=== PATIENT | male | born 1980 | race Native Hawaiian/Other Pacific Islander ===

== ENCOUNTER 2021-05-23 09:07 | Inpatient (IN) | payer SELFPAY ==
[~2021-05-23] VITALS: Ht 190.5 cm; Wt 87.1 kg
[2021-05-23] MEDS ORDERED: KETOROLAC 30 MG/ML VIAL IVP STA (09:13)
[2021-05-23] MEDS ORDERED: LACTATED RINGERS 1,000 ML IV STA (09:13)
--- NOTE | 2021-05-23 09:13 | ED Abdominal Pain ---
General Stated Complaint: ABD PAIN; N/V/D Source of Information: Patient, EMS Exam Limitations: No Limitations History of Present Illness Date Seen by Provider: May 23, 2021 Time Seen by Provider: 09:08 Initial Comments 41-year-old man with no significant past medical history coming in due to periumbilical abdominal pain via EMS. Pain started yesterday afternoon, has been intermittent, sharp, worsening. Nothing seems to make it better or worse. Has not taken any medications with it. Has associated nonbloody and nonbilious vomiting with the last episode about 4 hours ago. Also has associated nonbloody diarrhea. Denies any fever, chest pain, shortness of breath, cough, weakness, numbness, rash, dysuria, hematuria, or any other concerns. Has not been around anyone sick that he knows of. Has never had COVID and is not vaccinated for it. Of note, he says this feels similar to 5 years ago when he had appendicitis, although he no longer has an appendix. Last ate yesterday, has no appetite. Allergies and Home Medications Allergies Coded Allergies: No Known Drug Allergies (Unverified , 05/23/21) Patient Home Medication List Home Medication List Reviewed: Yes Review of Systems Review of Systems Constitutional: No chills, No fever EENTM: No Blurred Vision Respiratory: Denies Cough, Denies Shortness of Air Cardiovascular: Denies Chest Pain Gastrointestinal: Abdominal Pain, Diarrhea, Nausea, Vomiting Genitourinary: Denies Burning, Denies Frequency Musculoskeletal: No back pain Skin: No rash Psychiatric/Neurological: No Symptoms Reported Endocrine: No Symptoms Reported Hematologic/Lymphatic: No Symptoms Reported All Other Systems Reviewed Negative Unless Noted: Yes Past Zxlivtv-Ujfwqa-Pyeyev Hx Patient Social History Tobacco Use?: Yes Substance use?: No Alcohol Use?: No Past Medical History Surgeries: Yes Appendectomy Physical Exam Vital Signs Vital Signs - First Documented 05/23/21 09:15 Temp 36.4 Pulse 72 Resp 16 B/P (MAP) 131/91 (104) Pulse Ox 99 O2 Delivery Room Air Capillary Refill : Height/Weight/BMI Height: '" Weight: lbs. oz. kg; BMI Method: General Appearance: WD/WN, no apparent distress HEENT: PERRL/EOMI, normal ENT inspection, pharynx normal Neck: non-tender, full range of motion, supple, normal inspection Respiratory: chest non-tender, lungs clear, normal breath sounds, no respiratory distress, no accessory muscle use Cardiovascular: regular rate, rhythm, no edema, no murmur Gastrointestinal: normal bowel sounds, soft, guarding (voluntary); No rebound; tenderness Extremities: normal range of motion, non-tender, normal inspection, no pedal edema, no calf tenderness, normal capillary refill Back: normal inspection, no CVA tenderness, no vertebral tenderness Neurologic/Psychiatric: no motor/sensory deficits, alert, normal mood/affect Skin: normal color, warm/dry Lymphatic: no adenopathy Progress/Results/Core Measures Results/Orders Lab Results Laboratory Tests Test 05/23/21 09:18 Range/Units White Blood Count 14.0 H 4.3-11.0 10^3/uL Red Blood Count 5.88 H 4.30-5.52 10^6/uL Hemoglobin 15.9 13.3-17.7 g/dL Hematocrit 49 40-54 % Mean Corpuscular Volume 83 80-99 fL Mean Corpuscular Hemoglobin 27 25-34 pg Mean Corpuscular Hemoglobin Concent 32 32-36 g/dL Red Cell Distribution Width 13.7 10.0-14.5 % Platelet Count 384 130-400 10^3/uL Mean Platelet Volume 10.2 9.0-12.2 fL Immature Granulocyte % (Auto) 0 % Neutrophils (%) (Auto) 75 42-75 % Lymphocytes (%) (Auto) 19 12-44 % Monocytes (%) (Auto) 5 0-12 % Eosinophils (%) (Auto) 1 0-10 % Basophils (%) (Auto) 0 0-10 % Neutrophils # (Auto) 10.5 H 1.8-7.8 X 10^3 Lymphocytes # (Auto) 2.6 1.0-4.0 X 10^3 Monocytes # (Auto) 0.7 0.0-1.0 X 10^3 Eosinophils # (Auto) 0.1 0.0-0.3 10^3/uL Basophils # (Auto) 0.0 0.0-0.1 10^3/uL Immature Granulocyte # (Auto) 0.0 0.0-0.1 10^3/uL Sodium Level 138 135-145 MMOL/L Potassium Level 3.9 3.6-5.0 MMOL/L Chloride Level 104 98-107 MMOL/L Carbon Dioxide Level 23 21-32 MMOL/L Anion Gap 11 5-14 MMOL/L Blood Urea Nitrogen 10 7-18 MG/DL Creatinine 1.06 0.60-1.30 MG/DL Estimat Glomerular Filtration Rate 76 BUN/Creatinine Ratio 9 Glucose Level 141 H 70-105 MG/DL Calcium Level 9.9 8.5-10.1 MG/DL Corrected Calcium 9.5 8.5-10.1 MG/DL Total Bilirubin 0.3 0.1-1.0 MG/DL Aspartate Amino Transf (AST/SGOT) 12 5-34 U/L Alanine Aminotransferase (ALT/SGPT) 14 0-55 U/L Alkaline Phosphatase 102 40-136 U/L Total Protein 8.5 H 6.4-8.2 GM/DL Albumin 4.5 3.2-4.5 GM/DL Lipase 14 8-78 U/L Influenza Type A Antigen NEGATIVE NEGATIVE Influenza Type B Antigen NEGATIVE NEGATIVE My Orders Orders - LUPILLO PALOMO MD Comprehensive Metabolic Panel (05/23/21 09:13) Lipase (05/23/21 09:13) Ua Culture If Indicated (05/23/21 09:13) Ed Iv/Invasive Line Start (05/23/21 09:13) Cbc With Automated Diff (05/23/21 09:13) Ct Abdomen/Pelvis W (05/23/21 09:13) Covid 19 Inhouse Test (05/23/21 09:13) Influenza A & B Antigens (05/23/21 09:13) Ondansetron Injection (Zofran Injectio (05/23/21 09:15) Lactated Ringers (Lr 1000 Ml Iv Solution (05/23/21 09:13) Ketorolac Injection (Toradol Injection) (05/23/21 09:13) Iohexol Injection (Omnipaque 350 Mg/Ml 1 (05/23/21 09:30) Received Contrast (Hold Metformin- Contr (05/23/21 09:30) Sodium Chloride Flush (Catheter Flush Sy (05/23/21 09:30) Ns (Ivpb) (Sodium Chloride 0.9% Ivpb Bag (05/23/21 09:30) Ng Tube Insert & Assessment (05/23/21 10:15) Morphine Injection (Morphine Injection (05/23/21 10:15) Lorazepam Injection (Ativan Injection) (05/23/21 10:30) Lorazepam Injection (Ativan Injection) (05/23/21 10:29) Medications Given in ED Current Medications Medications Dose Ordered Sig/Ytler Route Start Time Stop Time Status Last Admin Dose Admin Iohexol 100 ml ONCE ONCE IV 05/23/21 09:30 05/23/21 09:31 DC 05/23/21 09:35 100 ML Lorazepam 1 mg ONCE ONCE IVP 05/23/21 10:30 05/23/21 10:31 DC 05/23/21 10:34 1 MG Ondansetron HCl 4 mg ONCE ONCE IVP 05/23/21 09:15 05/23/21 09:17 DC 05/23/21 09:25 4 MG Sodium Chloride 10 ml NEEDED PRN IV 05/23/21 09:30 05/23/21 09:35 10 ML Sodium Chloride 100 ml ONCE ONCE IV 05/23/21 09:30 05/23/21 09:31 DC 05/23/21 09:35 100 ML Vital Signs/I&O 05/23/21 05/23/21 09:15 11:30 Temp 36.4 Pulse 72 67 Resp 16 16 B/P (MAP) 131/91 (104) 131/78 Pulse Ox 99 97 O2 Delivery Room Air Room Air Progress Progress Note : Progress Note 41-year-old male with above history coming in due to abdominal pain. ABCs were intact and vitals were stable on presentation. Physical exam with mostly periumbilical tenderness with some voluntary guarding. An IV was placed and basic labs were obtained, he was given a bolus of IV fluids as well as Zofran for nausea and Toradol for pain control. Basic labs significant for slightly elevated white blood cell count, normal creatinine, normal liver function test. CT concerning for small bowel obst ruction. I contacted the surgeon on-call, Dr. Lee, and the patient will get an NG tube to suction. I contacted Dr. Ray, and the patient will be admitted to the Medr floor under inpatient status for further evaluation and management. Of note, we did have an incidental finding of a left adrenal mass. I discussed this with the patient, and discussed that this could be benign or cancerous. I discussed that he needs to have an MRI to further characterize this. He does not have insurance or primary care doctor. I recommended [facility] here in town and the patient is agreeable to this. Diagnostic Imaging Diagonstic Imaging: CT Plain Films/CT/US/NM/MRI: abdomen Comments NAME: KAIT HSIEH [facility] REC#: [id number] PT STATUS: REG ER : 1980 PHYSICIAN: LUPILLO PALOMO MD ADMIT DATE: 05/23/21/ER FS Draft Date of Exam:05/23/21 CT ABDOMEN/PELVIS W PROCEDURE: CT abdomen and pelvis with contrast. TECHNIQUE: Multiple contiguous axial images were obtained through the abdomen and pelvis after administration of intravenous contrast. Auto Exposure Controls were utilized during the CT exam to meet ALARA standards for radiation dose reduction. All CT scans use one or more of the following dose optimizing techniques: automated exposure control, MA and/or KvP adjustment based on patient size and exam type or iterative reconstruction. INDICATION: Periumbilical abdominal pain. History of loose stools. COMPARISON: I have no priors. FINDINGS: The stomach is distended with air and ingested material. The majority of the small bowel loops are dilated and showed air-fluid levels. Small bowel caliber up to 4.2 cm with the most dilated small bowel distally showing at least some fecalization and luminal debris. At and below the level of the umbilicus, there is some central abdominal pelvic decompressed small bowel loops transitioned at the level of the umbilicus. No umbilical hernia aside for tiny fatty hernia. No acute appearing abdominal wall defect. Early or partial small bowel obstruction is presumed however no cause can be identified. There is a small volume pelvic free fluid without loculation or abscess. The appendix is surgically absent. The terminal ileum decompressed and appeared unremarkable. There is some liquid stool within the proximal colon. The distal colon and transverse colon are decompressed. No fecal loading at the rectal vault, no impaction. Liver, gallbladder and bile ducts normal. The spleen and pancreas normal. The unobstructed kidneys normal. The urinary bladder unremarkable. There is no abdominal pelvic mesenteric or retroperitoneal lymphadenopathy. There are left adrenal masses, the larger more cephalad appears to be off the tip of the lateral limb of the left adrenal and measured 3.7 x 3.1 cm and appears heterogeneous in its density and enhancement without macroscopic fat. The smaller is off the medial limb of the left adrenal and appears homogenously hyperdense measuring 1.6 x 1.3 cm. The right adrenal appeared normal. IMPRESSION: Mid to distal small bowel obstruction, transition at the midline at or just below the level of the umbilicus, etiology not defined. Small volume pelvic free fluid without abscess or loculated collection. Gastric distention without evidence for outlet obstruction. No viscus perforation. Left adrenal masses, the larger 3.8 x 3.1 cm heterogeneous in its density and enhancement, without appreciable fatty composition. Further workup with adrenal protocol MRI recommended. As this patient has had previous appendectomy, it is likely that outside exams exist. Attempt to obtain those studies encouraged to see if long-term stability of these indeterminant masses could be ascertained. Otherwise, neoplastic primary versus metastatic as well as a process such as pleochromocytoma could not be excluded by imaging criteria and further workup would be needed including adrenal protocol MRI as well as a relevant clinical correlation. No other significant abnormality. Dictated on workstation # [id number] Dict: 05/23/21 0945 Trans: 05/23/21 1004 [facility] [id number] Interpreted by: FREDO MORTENSEN Electronically signed by: Departure Impression Primary Impression: SBO (small bowel obstruction) Additional Impression: Adrenal mass, left Disposition: 30 STILL A PATIENT Condition: Stable Admissions Decision to Admit Reason: Admit from ER (General) Decision to Admit/Date: May 23, 2021 Time/Decision to Admit Time: 10:10 Transfer Method of Transfer: EMS LUPILLO PALOMO MD May 23, 2021 09:13
[2021-05-23] MEDS ORDERED: ONDANSETRON 4 MG/2 ML (SDV) Z0FRAN IVP ONE (09:15)
[2021-05-23 09:30] LABS: BASOPHILS % (AUTO) 0 % (0-10); EOSINOPHILS % (AUTO) 1 % (0-10); HEMATOCRIT 49 % (40-54); HEMOGLOBIN 15.9 g/dL (13.3-17.7); LYMPHOCYTES % (AUTO) 19 % (12-44); MEAN CORPUSCULAR HEMOGLOBIN 27 pg (25-34); MEAN CORPUSCULAR HGB CONC 32 g/dL (32-36); MEAN CORPUSCULAR VOLUME 83 fL (80-99); MEAN PLATELET VOLUME 10.2 fL (9.0-12.2); MONOCYTES % (AUTO) 5 % (0-12); NEUTROPHILS % (AUTO) 75 % (42-75); PLATELET COUNT 384 10^3/uL (130-400)
[2021-05-23] MEDS ORDERED: IOHEXOL 350 MG/ML 100 ML (OMNIPAQUE 350) VIAL IV ONE (09:30)
[2021-05-23] MEDS ORDERED: HOLD METFORMIN - RECEIVED CONTRAST 20 ML VIAL IV SCH (09:30)
[2021-05-23] MEDS ORDERED: NS 100 ML (IVPB) BAG IV ONE (09:30)
[2021-05-23] MEDS ORDERED: CATHETER FLUSH 10 ML SYR IV PRN (09:30)
[2021-05-23 09:31] LABS: EOSINOPHILS # (AUTO) 0.1 10^3/uL (0.0-0.3); LYMPHOCYTES # (AUTO) 2.6 X 10^3 (1.0-4.0); MONOCYTES # (AUTO) 0.7 X 10^3 (0.0-1.0); NEUTROPHILS # (AUTO) 10.5 X 10^3 (1.8-7.8)
[2021-05-23 09:59] LABS: CREATININE SERUM 1.06 MG/DL (0.60-1.30); POTASSIUM 3.9 MMOL/L (3.6-5.0)
[2021-05-23 10:00] LABS: ALBUMIN 4.5 GM/DL (3.2-4.5); BILIRUBIN,TOTAL 0.3 MG/DL (0.1-1.0); CALCIUM 9.9 MG/DL (8.5-10.1); TOTAL PROTEIN 8.5 GM/DL (6.4-8.2)
--- NOTE | 2021-05-23 10:04 | Diagnostic Imaging Report ---
PROCEDURE: CT abdomen and pelvis with contrast. TECHNIQUE: Multiple contiguous axial images were obtained through the abdomen and pelvis after administration of intravenous contrast. Auto Exposure Controls were utilized during the CT exam to meet ALARA standards for radiation dose reduction. All CT scans use one or more of the following dose optimizing techniques: automated exposure control, MA and/or KvP adjustment based on patient size and exam type or iterative reconstruction. INDICATION: Periumbilical abdominal pain. History of loose stools. COMPARISON: I have no priors. FINDINGS: The stomach is distended with air and ingested material. The majority of the small bowel loops are dilated and showed air-fluid levels. Small bowel caliber up to 4.2 cm with the most dilated small bowel distally showing at least some fecalization and luminal debris. At and below the level of the umbilicus, there is some central abdominal pelvic decompressed small bowel loops transitioned at the level of the umbilicus. No umbilical hernia aside for tiny fatty hernia. No acute appearing abdominal wall defect. Early or partial small bowel obstruction is presumed however no cause can be identified. There is a small volume pelvic free fluid without loculation or abscess. The appendix is surgically absent. The terminal ileum decompressed and appeared unremarkable. There is some liquid stool within the proximal colon. The distal colon and transverse colon are decompressed. No fecal loading at the rectal vault, no impaction. Liver, gallbladder and bile ducts normal. The spleen and pancreas normal. The unobstructed kidneys normal. The urinary bladder unremarkable. There is no abdominal pelvic mesenteric or retroperitoneal lymphadenopathy. There are left adrenal masses, the larger more cephalad appears to be off the tip of the lateral limb of the left adrenal and measured 3.7 x 3.1 cm and appears heterogeneous in its density and enhancement without macroscopic fat. The smaller is off the medial limb of the left adrenal and appears homogenously hyperdense measuring 1.6 x 1.3 cm. The right adrenal appeared normal. IMPRESSION: Mid to distal small bowel obstruction, transition at the midline at or just below the level of the umbilicus, etiology not defined. Small volume pelvic free fluid without abscess or loculated collection. Gastric distention without evidence for outlet obstruction. No viscus perforation. Left adrenal masses, the larger 3.8 x 3.1 cm heterogeneous in its density and enhancement, without appreciable fatty composition. Further workup with adrenal protocol MRI recommended. As this patient has had previous appendectomy, it is likely that outside exams exist. Attempt to obtain those studies encouraged to see if long-term stability of these indeterminant masses could be ascertained. Otherwise, neoplastic primary versus metastatic as well as a process such as pleochromocytoma could not be excluded by imaging criteria and further workup would be needed including adrenal protocol MRI as well as a relevant clinical correlation. No other significant abnormality. Dictated by: Dictated on workstation # [id number]
[2021-05-23] MEDS ORDERED: morphine INJ 10 MG/ML 1ML (SYR OR VIAL) IVP STA (10:15)
[2021-05-23] MEDS ORDERED: LORazepam INJ 2 MG/ML (ATIVAN) VIAL ONE (10:29)
[2021-05-23] MEDS ORDERED: LORazepam INJ 2 MG/ML (ATIVAN) VIAL IVP ONE (10:30)
[2021-05-23] MEDS ORDERED: ONDANSETRON 4 MG/2 ML (SDV) Z0FRAN IV PRN (12:45)
[2021-05-23] MEDS ORDERED: morphine INJ 4 MG/ML 1 ML (VIAL/SYRINGE) IVP PRN (12:45)
--- NOTE | 2021-05-23 12:46 | Consultation - Surgery ---
History of Present Illness History of Present Illness Patient Consulted On(katie/time) 05/23/21 12:41 Time Seen by Provider: 12:30 History of Present Illness Surgery asked to consult regarding partial small bowel obstruction. HPI per ED: 41-year-old man with no significant past medical history coming in due to periumbilical abdominal pain via EMS. Pain started yesterday afternoon, has been intermittent, sharp, worsening. Nothing seems to make it better or worse. Has not taken any medications with it. Has associated nonbloody and nonbilious vomiting with the last episode about 4 hours ago. Also has associated nonbloody diarrhea. Denies any fever, chest pain, shortness of breath, cough, weakness, numbness, rash, dysuria, hematuria, or any other concerns. Has not been around anyone sick that he knows of. Has never had COVID and is not vaccinated for it. Of note, he says this feels similar to 5 years ago when he had appendicitis, although he no longer has an appendix. Last ate yesterday, has no appetite. When I spoke to pt he states the pain started last night and was associated with vomiting. Rated pain last night as 8 out of 10, now it is 3-4. Still mildly nauseous. He denied any previous episode of bowel obstruction. Allergies and Home Medications Allergies Coded Allergies: No Known Drug Allergies (Unverified , 05/23/21) Patient Home Medication List Home Medication List Reviewed: Yes Past Ugecltx-Opotad-Dfuepr Hx Patient Social History Smoking Status: Current Everyday Smoker Alcohol Use?: No Have you traveled recently?: No Surgeries History of Surgeries: Yes Surgeries: Appendectomy Respiratory History of Respiratory Disorde: No Cardiovascular History of Cardiac Disorders: No Neurological History of Neurological Disord: No Genitourinary History of Genitourinary Disor: No Gastrointestinal History of Gastrointestinal Di: No Musculoskeletal History of Musculoskeletal Dis: No Endocrine History of Endocrine Disorders: No HEENT History of HEENT Disorders: No Loss of Vision: Denies Hearing Impairment: Denies Cancer History of Cancer: No Psychosocial History of Psychiatric Problem: No Family Medical History Significant Family History: Cancer (Father of pancreatic Cancer), Diabetes (Mother) Review of Systems-General Constitutional: No chills, No diaphoresis EENTM: No blurred vision, No mouth swelling, No epistaxis, No throat swelling Respiratory: No cough, No dyspnea on exertion Cardiovascular: No chest pain, No edema, No palpitations Gastrointestinal: abdominal pain; No jaundice; loss of appetite, nausea, vomiting Genitourinary: No dysuria, No frequency, No hematuria Musculoskeletal: No joint pain, No joint swelling, No muscle stiffness Skin: No change in color, No change in hair/nails Psychiatric/Neurological: Denies Anxiety, Denies Seizure, Denies Tremors Physical Exam-General Problems Physical Exam Vital Signs Vital Signs - First Documented 05/23/21 09:15 Temp 36.4 Pulse 72 Resp 16 B/P (MAP) 131/91 (104) Pulse Ox 99 O2 Delivery Room Air Capillary Refill : Less Than 3 Seconds General Appearance: WD/WN, no apparent distress Eyes: Bilateral Eye PERRL, Bilateral Eye EOMI HEENT: pharynx normal; No scleral icterus (R), No scleral icterus (L) Neck: non-tender, supple Respiratory: chest non-tender, lungs clear, normal breath sounds, no respiratory distress, no accessory muscle use Cardiovascular: regular rate, rhythm, no murmur Gastrointestinal: soft, distended, tenderness (diffusely), hernia (umbilical), other (scar midline from appendectomy) Rectal: deferred Back: no CVA tenderness, no vertebral tenderness Extremities: non-tender, normal inspection, no pedal edema, no calf tenderness 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, no motor/sensory deficits, alert, normal mood/affect, oriented x 3 Skin: normal color, warm/dry, tattoos/piercings Lymphatic: no adenopathy (neck, axilla or groin) Data Review Labs Laboratory Tests 05/23/21 09:18: White Blood Count 14.0H, Red Blood Count 5.88H, Hemoglobin 15.9, Hematocrit 49, Mean Corpuscular Volume 83, Mean Corpuscular Hemoglobin 27, Mean Corpuscular Hemoglobin Concent 32, Red Cell Distribution Width 13.7, Platelet Count 384, Mean Platelet Volume 10.2, Immature Granulocyte % (Auto) 0, Neutrophils (%) (A uto) 75, Lymphocytes (%) (Auto) 19, Monocytes (%) (Auto) 5, Eosinophils (%) (Auto) 1, Basophils (%) (Auto) 0, Neutrophils # (Auto) 10.5H, Lymphocytes # (Auto) 2.6, Monocytes # (Auto) 0.7, Eosinophils # (Auto) 0.1, Basophils # (Auto) 0.0, Immature Granulocyte # (Auto) 0.0, Sodium Level 138, Potassium Level 3.9, Chloride Level 104, Carbon Dioxide Level 23, Anion Gap 11, Blood Urea Nitrogen 10, Creatinine 1.06, Estimat Glomerular Filtration Rate 76, BUN/Creatinine Ratio 9, Glucose Level 141H, Calcium Level 9.9, Corrected Calcium 9.5, Total Bilirubin 0.3, Aspartate Amino Transf (AST/SGOT) 12, Alanine Aminotransferase (ALT/SGPT) 14, Alkaline Phosphatase 102, Total Protein 8.5H, Albumin 4.5, Lipase 14, Influenza Type A Antigen NEGATIVE, Influenza Type B Antigen NEGATIVE Radiology Date of Exam:05/23/21 CT ABDOMEN/PELVIS W PROCEDURE: CT abdomen and pelvis with contrast. TECHNIQUE: Multiple contiguous axial images were obtained through the abdomen and pelvis after administration of intravenous contrast. Auto Exposure Controls were utilized during the CT exam to meet ALARA standards for radiation dose reduction. All CT scans use one or more of the following dose optimizing techniques: automated exposure control, MA and/or KvP adjustment based on patient size and exam type or iterative reconstruction. INDICATION: Periumbilical abdominal pain. History of loose stools. COMPARISON: I have no priors. FINDINGS: The stomach is distended with air and ingested material. The majority of the small bowel loops are dilated and showed air-fluid levels. Small bowel caliber up to 4.2 cm with the most dilated small bowel distally showing at least some fecalization and luminal debris. At and below the level of the umbilicus, there is some central abdominal pelvic decompressed small bowel loops transitioned at the level of the umbilicus. No umbilical hernia aside for tiny fatty hernia. No acute appearing abdominal wall defect. Early or partial small bowel obstruction is presumed however no cause can be identified. There is a small volume pelvic free fluid without loculation or abscess. The appendix is surgically absent. The terminal ileum decompressed and appeared unremarkable. There is some liquid stool within the proximal colon. The distal colon and transverse colon are decompressed. No fecal loading at the rectal vault, no impaction. Liver, gallbladder and bile ducts normal. The spleen and pancreas normal. The unobstructed kidneys normal. The urinary bladder unremarkable. There is no abdominal pelvic mesenteric or retroperitoneal lymphadenopathy. There are left adrenal masses, the larger more cephalad appears to be off the tip of the lateral limb of the left adrenal and measured 3.7 x 3.1 cm and appears heterogeneous in its density and enhancement without macroscopic fat. The smaller is off the medial limb of the left adrenal and appears homogenously hyperdense measuring 1.6 x 1.3 cm. The right adrenal appeared normal. IMPRESSION: Mid to distal small bowel obstruction, transition at the midline at or just below the level of the umbilicus, etiology not defined. Small volume pelvic free fluid without abscess or loculated collection. Gastric distention without evidence for outlet obstruction. No viscus perforation. Left adrenal masses, the larger 3.8 x 3.1 cm heterogeneous in its density and enhancement, without appreciable fatty composition. Further workup with adrenal protocol MRI recommended. As this patient has had previous appendectomy, it is likely that outside exams exist. Attempt to obtain those studies encouraged to see if long-term stability of these indeterminant masses could be ascertained. Otherwise, neoplastic primary versus metastatic as well as a process such as pleochromocytoma could not be excluded by imaging criteria and further workup would be needed including adrenal protocol MRI as well as a relevant clinical correlation. No other significant abnormality. Dictated by: Dictated on workstation # [id number] Dict: 05/23/21 0945 Trans: 05/23/[address] [facility] [place] [phone] Interpreted by: FREDO MORTENSEN Electronically signed by: FREDO MORTENSEN 05/23/21 1122 Assessment/Plan Assessment/Plan Assessment/Plan PSBO Left Adrenal Masses I reviewed the CT myself and discussed pt's care with physician. He had NGT placed in ER, he should remain NPO, IV fluids, anti-emetics and pain meds as needed. Will order a SBFT for tomorrow. I went over normal course of bowel obstruction; most likely it could be a previous adhesion or an enteritis. Hopefully he will not need surgery; however, if he doesn't progress or SBFT shows contrast not moving past questionable point of obstruction he will need to go to OR. He understood and I encouraged him to walk around which should help with bowel function and motility. All questions answered to his satisfaction. I will also try to see if he had CT done 5 yrs ago to get images for comparison and most likely will need work-up, can be done as outpt. He denies any problems with blood pressure or flushing. CLAY ROMO DO May 23, 2021 12:46
[2021-05-23] MEDS: LACTATED RINGERS 1,000 ML IV SCH ×2 (12:57→19:25)
[2021-05-23] MEDS: ENOXAPARIN 40 MG/0.4 ML (LOVENOX) SYR SC SCH (12:57)
[2021-05-23 13:20] VITALS: BP 135/85
[2021-05-23 15:49] VITALS: BP 137/82
[2021-05-23 19:06] VITALS: BP 130/69
[2021-05-23] MEDS: KETOROLAC 15 MG/ML VIAL IVP PRN (19:25)
[2021-05-24] VITALS: BP 126/81
[2021-05-24] MEDS: LACTATED RINGERS 1,000 ML IV SCH ×4 (02:17→22:44)
[2021-05-24 04:49] VITALS: BP 137/81
[2021-05-24] MEDS: KETOROLAC 15 MG/ML VIAL IVP PRN (08:08)
[2021-05-24 09:18] VITALS: BP 121/75
[2021-05-24 09:30] LABS: HEMATOCRIT 42 % (40-54); HEMOGLOBIN 13.8 g/dL (13.3-17.7); MEAN CORPUSCULAR HEMOGLOBIN 27 pg (25-34); MEAN CORPUSCULAR HGB CONC 33 g/dL (32-36); MEAN CORPUSCULAR VOLUME 84 fL (80-99); MEAN PLATELET VOLUME 10.3 fL (9.0-12.2); PLATELET COUNT 308 10^3/uL (130-400)
[2021-05-24 09:51] LABS: CALCIUM 9.1 MG/DL (8.5-10.1); CREATININE SERUM 0.94 MG/DL (0.60-1.30)
[2021-05-24] MEDS ORDERED: DIATRIZOATE MEGLUM/SODIUM 37% 120 ML (GASTROGRAFIN) NG ONE (13:00)
--- NOTE | 2021-05-24 13:05 | Diagnostic Imaging Report ---
INDICATION: COVID positive, hospitalized, concern for small bowel obstruction.. TECHNIQUE: Contrast administered with serial imaging obtained of the abdomen until contrast was noted in the colon.. CORRELATION STUDY: CT 05/23/2021 FINDINGS: Gastric tube is present, tip in the body of the stomach. After administration of contrast, there is normal filling of the nondistended stomach with migration of contrast into the duodenum and into the small bowel. There are mildly distended loops of small bowel present. There is gas within the colon including to the level of the rectum. There is progressive migration of contrast through the dilated small bowel. A definitive transition point of obstruction to suggest high degree obstruction is not demonstrated. On the one-hour 45 minute image, there is contrast noted within the proximal colon. IMPRESSION: 1. Dilated, distended small bowel. However, contrast migrates through the dilated small bowel without significant delay or findings to suggest high degree small bowel obstruction. Serial follow-up imaging may be of additional diagnostic utility. Dictated by: Dictated on workstation # [id number]
--- NOTE | 2021-05-24 13:18 | Progress Note - Surgery ---
Subjective Time Seen by a Provider: 10:55 Subjective/Events-last exam Pt seen and examined, he is currently getting SBFT. Still has some mild abdominal pain. Not much coming out of NGT. Review of Systems General: Fatigue Pulmonary: No Dyspnea, No Cough Cardiovascular: No: Chest Pain, Palpitations Gastrointestinal: Abdominal Pain; No: Nausea, Vomiting Objective Exam Vital Signs Date Time Temp Pulse Resp B/P (MAP) Pulse Ox O2 Delivery O2 Flow Rate FiO2 05/24/21 09:18 36.9 56 16 121/75 (90) 97 Room Air 05/24/21 08:00 100 Room Air 05/24/21 04:49 36.2 63 18 137/81 (99) 100 Room Air 05/24/21 00:00 36.5 67 18 126/81 (96) 100 Room Air 05/23/21 20:15 Room Air 05/23/21 19:06 36.3 69 18 130/69 (89) 96 Room Air 05/23/21 16:14 Room Air 05/23/21 16:10 99 Room Air 05/23/21 15:49 36.1 76 18 137/82 (100) 98 Room Air 05/23/21 13:20 36.5 65 18 135/85 (102) 97 Room Air I & O0 05/24/21 07:00 Intake Total 1000 ml Output Total 50 ml Balance 950 ml Capillary Refill : Less Than 3 Seconds General Appearance: No Apparent Distress, WD/WN Respiratory: Lungs Clear, Normal Breath Sounds, No Accessory Muscle Use, No Respiratory Distress Cardiovascular: Regular Rate, Rhythm, No Murmur Gastrointestinal: soft, distended, tenderness (diffusely but minimal), hernia (umbilical), other (scar midline from appendectomy) Results Lab Laboratory Tests 05/24/21 09:20: White Blood Count 9.0, Red Blood Count 5.03, Hemoglobin 13.8, Hematocrit 42, Mean Corpuscular Volume 84, Mean Corpuscular Hemoglobin 27, Mean Corpuscular Hemoglobin Concent 33, Red Cell Distribution Width 13.6, Platelet Count 308, Mean Platelet Volume 10.3, Sodium Level 140, Potassium Level 4.0, Chloride Level 105, Carbon Dioxide Level 26, Anion Gap 9, Blood Urea Nitrogen 9, Creatinine 0.9 4, Estimat Glomerular Filtration Rate 88, BUN/Creatinine Ratio 10, Glucose Level 90, Calcium Level 9.1 Assessment/Plan Assessment/Plan Assessment/Plan PSBO Left Adrenal Masses Covid positive SBFT appears to show contrast in proximal colon and goes through small bowel without problems. Will clamp NGT and start clears, see how pt does. Continue pain meds as needed, encourage IS and ambulation. Treat respiratory symptoms if they develop. CLAY ROMO DO May 24, 2021 13:18
[2021-05-24] MEDS: ENOXAPARIN 40 MG/0.4 ML (LOVENOX) SYR SC SCH (13:26)
--- NOTE | 2021-05-24 14:03 | History & Physical-Hospitalist ---
History of Present Illness HPI/Chief Complaint Maximo Copeland is a 41 year old male with PSH appendectomy who presented with abdominal pain. He has also had nausea and vomiting. He reports cough. He denies fevers and chills. He denies shortness of breath. He is not having bowel movements. He is now passing gas. His abdominal pain is improved with NG tube placement. Source: patient Date Seen 05/24/21 Time Seen by a Provider: 10:00 Attending Physician Kristin Macario MD PCP No,Local Physician Referring Physician Date of Admission May 23, 2021 at 12:10 Home Medications & Allergies Home Medications Reviewed patient Home Medication Reconciliation performed by pharmacy medication reconciliations autocad technician and/or nursing. Patients Allergies have been reviewed. Allergies Allergies Coded Allergies No Known Drug Allergies ([id number]/31/21) Past Qsidflk-[id number]-Yhymep Hx Patient Social History Tobacco Use?: Yes Tobacco type used: Cigarettes Smoking Status: Current Everyday Smoker Substance use?: No Alcohol Use?: No Pt feels they are or have been: No Current Status Advance Directives: No Communicates: Verbally Primary Language: [place] Preferred Spoken Language: [place] Past Medical History Surgeries: Appendectomy Loss of Vision: Denies Hearing Impairment: Denies Family Medical History Cancer (Father of pancreatic Cancer), Diabetes (Mother) Review of Systems Constitutional: no symptoms reported EENTM: no symptoms reported Respiratory: cough Cardiovascular: no symptoms reported Gastrointestinal: abdominal pain, nausea, vomiting Genitourinary: no symptoms reported Musculoskeletal: no symptoms reported Skin: no symptoms reported Psychiatric/Neurological: No Symptoms Reported Physical Exam Physical Exam Vital Signs Vital Signs - First Documented 05/23/21 09:15 Temp 36.4 Pulse 72 Resp 16 B/P (MAP) 131/91 (104) Pulse Ox 99 O2 Delivery Room Air Capillary Refill : Less Than 3 Seconds Height, Weight, BMI Height: '" Weight: lbs. oz. kg; 24.00 BMI Method: General Appearance: No Apparent Distress, WD/WN HEENT: PERRL/EOMI, Pharynx Normal Neck: Normal Inspection, Supple Respiratory: Lungs Clear, Normal Breath Sounds, No Respiratory Distress Cardiovascular: Regular Rate, Rhythm, No Edema, No Murmur Gastrointestinal: Normal Bowel Sounds, Soft; No Distended, No Guarding; Tenderness Extremity: Normal Inspection, Non Tender, No Pedal Edema Neurologic/Psychiatric: Alert, Oriented x3, No Motor/Sensory Deficits, Normal Mood/Affect Skin: Normal Color, Warm/Dry Results Results/Procedures Labs Laboratory Tests 05/23/21 09:18 05/24/21 09:20 Patient resulted labs reviewed. 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
[2021-05-24 16:45] VITALS: BP 112/66
[2021-05-25] VITALS: BP 119/74
[2021-05-25 01:21] VITALS: BP 119/74
[2021-05-25] MEDS: LACTATED RINGERS 1,000 ML IV SCH ×2 (06:05→09:04)
[2021-05-25 08:30] VITALS: BP 129/75
[2021-05-25] MEDS: ENOXAPARIN 40 MG/0.4 ML (LOVENOX) SYR SC SCH (13:22)
--- NOTE | 2021-05-25 14:03 | Progress Note - Surgery ---
Subjective Time Seen by a Provider: 13:28 Subjective/Events-last exam Pt seen and examined, states he is doing much better with no nausea or vomiting. Tolerating clears. Review of Systems General: No Chills, No Night Sweats Pulmonary: No Dyspnea, No Cough Cardiovascular: No: Chest Pain, Palpitations Gastrointestinal: No: Nausea, Vomiting, Abdominal Pain Objective Exam Vital Signs Date Time Temp Pulse Resp B/P (MAP) Pulse Ox O2 Delivery O2 Flow Rate FiO2 05/25/21 08:30 36.3 55 16 129/75 (93) 95 Room Air 05/25/21 08:00 95 Room Air 05/25/21 01:21 36.7 70 18 119/74 (89) 98 Room Air 05/25/21 00:00 36.7 70 18 119/74 (89) 98 Room Air 05/24/21 20:40 98 Room Air 05/24/21 16:45 36.6 62 18 112/66 (81) 98 Room Air I & O 05/25/21 07:00 Intake Total 3090 ml Output Total 2400 ml Balance 690 ml Capillary Refill : Less Than 3 Seconds General Appearance: No Apparent Distress, WD/WN HEENT: PERRL/EOMI, Pharynx Normal Respiratory: Lungs Clear, Normal Breath Sounds, No Accessory Muscle Use, No Respiratory Distress Cardiovascular: Regular Rate, Rhythm, No Murmur Gastrointestinal: non tender, soft, hernia (umbilical), other (scar midline from appendectomy) Skin: Normal Color, Warm/Dry Assessment/Plan Assessment/Plan Assessment/Plan PSBO Left Adrenal Masses Covid positive Pt tolerating clears and just prior to removing NGT it was checked for residual; none found. Continue pain meds as needed, encourage IS and ambulation. If he tolerates soft lunch he can go home. CLAY ROMO DO May 25, 2021 14:03
[2021-05-25 16:00] VITALS: BP 107/68
[2021-05-25 18:11] VITALS: BP 107/68
--- NOTE | 2021-05-25 18:35 | Discharge Summary ---
Discharge Summary Hospital Course Was the Problem List Reviewed?: Yes Problems/Dx: (1) SBO (small bowel obstruction) Status: Acute (2) COVID-19 Status: Acute (3) Adrenal mass, left Status: Acute Hospital Course Date of Admission: May 23, 2021 at 12:10 Admission Diagnosis : Small bowel obstruction Family Physician/Provider: Ro,Local Physician Date of Discharge: 05/25/21 Discharge Diagnosis: Small bowel obstruction, COVID-19 Hospital Course: Maximo Copeland is a 41 year old male who presented with nausea, vomiting, and abdominal pain. He was admitted with small bowel obstruction. Surgery was consulted and assisted with his care. He had a small bowel follow through which did not show any high grade obstruction. His symptoms improved. He began passing gas and had several bowel movements. His diet was advanced and he tolerated this well. His COVID test was also positive but did not require any treatment. He also had an adrenal incidentaloma which will require outpatient follow up. He was discharged home in stable condition. He should follow up with his PCP. Labs and Pending Lab Test: Home Meds Active No Active Prescriptions or Reported Medications Assessment/Pt Instructions See instructions Discharge Planning: <30 minutes discharge planning Discharge Instructions Discharge Diet: No Restrictions Activity as Tolerated: Yes Consultations General surgery Discharge Physical Examination Vital Signs Vital Signs Date Time Temp Pulse Resp B/P (MAP) Pulse Ox O2 Delivery O2 Flow Rate FiO2 05/25/21 18:11 37.2 66 18 107/68 99 Room Air General Appearance: No Apparent Distress, WD/WN HEENT: PERRL/EOMI, Pharynx Normal Respiratory: Lungs Clear, Normal Breath Sounds, No Respiratory Distress Cardiovascular: Regular Rate, Rhythm, No Edema, No Murmur Gastrointestinal: Normal Bowel Sounds, Non Tender, Soft Extremity: Normal Inspection, Non Tender, No Pedal Edema Skin: Normal Color, Warm/Dry Neurologic/Psychiatric: Alert, Oriented x3, No Motor/Sensory Deficits, Normal Mood/Affect Allergies: Coded Allergies: No Known Drug Allergies (Unverified , 05/23/21) Discharge Summary Date of Admission May 23, 2021 at 12:10 Date of Discharge Discharge Date: May 25, 2021 Discharge Time: 18:33 Admission Diagnosis Small bowel obstruction Consults/Procedures Consulations General surgery Discharge Diagnosis SBO COVID-19 Adrenal incidentaloma (1) SBO (small bowel obstruction) Status: Acute (2) COVID-19 Status: Acute (3) Adrenal mass, left Status: Acute SHANNEN MACARIO MD May 25, 2021 18:35
== END 2021-05-25 18:25 | disposition home or self-care (01) | DRG 388 ==
LOC: ER FS 09:08 → 4TH 12:10
PROVIDERS: ADMIT Internal Medicine; ATTEND Internal Medicine
PROC: 0D9670Z Drainage of Stomach with Drainage Device, Via Natural or Artificial Opening (ICD-10-PCS; principal; 2021-05-23)
DX: K56.600 Partial intestinal obstruction, unspecified as to cause (principal); U07.1 COVID-19; E27.8 Other specified disorders of adrenal gland; F17.210 Nicotine dependence, cigarettes, uncomplicated
CPT/HCPCS: 36415; 74177; 74250; 80048; 80053; 83690; 85027; 87636; 87804; 94664